=== PATIENT | male | born 1950 | race Caucasian/White ===

== ENCOUNTER → 2018-08-02 10:50 | Outpatient (CLI) | payer OTHER, SELFPAY ==
--- NOTE | 2018-08-02 10:53 | CDU_ITS ---
Reason For Study: TIA Rt. Velocities/BP Lt. Velocities/BP Prox CCA 76.8/11.7 cm/sec. Prox CCA 85.2/35.4 cm/sec. Mid CCA 61.4/9.4 cm/sec. Mid CCA 79.7/23.2 cm/sec. Dist CCA 59.2/9.96 cm/sec. Dist CCA 87.5/28.9 cm/sec. Prox ECA 82.4/11.1 cm/sec. Prox ICA 192/53.1 cm/sec. Rt. Vert. 50.3/17.1 cm/sec. Mid ICA 146/35.8 cm/sec. Dist ICA 80.1/25.9 cm/sec. Lt. ICA/CCA = 2.25. Prox ECA 53/8.53 cm/sec. Lt. Vert. 30/12 cm/sec. Right Extracranial There is no significant atherosclerotic plaque noted in the right common carotid artery. 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 There is no significant atherosclerotic plaque noted in the right external carotid artery. Antegrade flow is noted in the right vertebral artery. Left Extracranial There is no significant atherosclerotic plaque noted in the left common carotid artery. There is heterogeneous, irregular atherosclerotic plaque noted in the left internal carotid artery. The atherosclerotic plaque causes acoustic shadowing. There is homogeneous, irregular atherosclerotic plaque noted in the left external carotid artery. Antegrade flow is noted in the left vertebral artery. Procedure Carotid Duplex [id number]. Exam performed in department. Interpretation Summary Moderate (50-69%) stenosis left extracranial internal carotid. Flow within the vertebral arteries is antegrade bilaterally. 3. right ICA occluded. Ordering Physician: Adrian Herrera Referring Physician: MD Naif Bell Performed By: Sharyn DEVONTE, GONZALES, Adia and Student
== END ==
PROVIDERS: Family Provider Family Medicine; PCP Family Medicine; Visit Provider Internal Medicine Cardiovascular Disease
DX: I65.29 Occlusion and stenosis of unspecified carotid artery (principal); I10 Essential (primary) hypertension; E78.5 Hyperlipidemia, unspecified; Z86.73 Personal history of transient ischemic attack (TIA), and cerebral infarction without residual deficits
CPT/HCPCS: 93880

== ENCOUNTER → 2019-10-30 07:57 | Outpatient (CLI) | payer OTHER, SELFPAY ==
[2019-08-09 14:28] VITALS: BMI 27.7
--- NOTE | 2019-10-30 08:01 | CDU_ITS ---
Reason For Study: carotid stenosis Rt. Velocities/BP Lt. Velocities/BP Prox CCA 82.6/13.4 cm/sec. Prox CCA 103.4/27.8 cm/sec. Mid CCA 69.5/9.5 cm/sec. Mid CCA 98.2/23.9 cm/sec. Dist CCA 63.0/10.8 cm/sec. Dist CCA 89.1/29.1 cm/sec. Prox ECA 109.9/20.0 cm/sec. Prox ICA 168.6/57.2 cm/sec. Rt. Vert. 76.0/22.6 cm/sec. Mid ICA 171.8/44.5 cm/sec. Dist ICA 122.9/38.9 cm/sec. Lt. ICA/CCA = 1.7. Prox ECA 112.5/13.4 cm/sec. Lt. Vert. 36.9/8.1 cm/sec. Right Extracranial There is intimal thickening but no significant atherosclerotic plaque noted in the right common carotid artery. 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 There is intimal thickening but no significant atherosclerotic plaque noted in the right external carotid artery. Antegrade flow is noted in the right vertebral artery. Left Extracranial There is intimal thickening but no significant atherosclerotic plaque noted in the left common carotid artery. There is heterogeneous, irregular atherosclerotic plaque noted in the left internal carotid artery. The atherosclerotic plaque causes acoustic shadowing. There is heterogeneous, irregular atherosclerotic plaque noted in the left external carotid artery. Antegrade flow is noted in the left vertebral artery. Procedure Carotid Duplex [id number]. The exam was diagnostic. Exam performed in department. 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 Moderate (50-69%) stenosis left extracranial internal carotid. Flow within the vertebral arteries is antegrade bilaterally. Ordering Physician: Naif Bell Performed By: Fareed, Enrique, RVT
== END ==
LOC: CVS 07:57
PROVIDERS: Family Provider Family Medicine; PCP Family Medicine; Referring Provider Surgery Vascular Surgery; Visit Provider Surgery Vascular Surgery
DX: I65.23 Occlusion and stenosis of bilateral carotid arteries (principal); I10 Essential (primary) hypertension; E78.00 Pure hypercholesterolemia, unspecified; I25.2 Old myocardial infarction; Z86.73 Personal history of transient ischemic attack (TIA), and cerebral infarction without residual deficits
CPT/HCPCS: 93880

== ENCOUNTER → 2020-04-02 13:54 | Outpatient (CLI) | payer OTHER, SELFPAY ==
[2020-03-07 09:14] VITALS: BMI 27.4
--- NOTE | 2020-04-02 14:00 | ECHOD_ITS ---
Reason For Study: PHTN Procedure This was a 2D Doppler, Color Flow transthoracic echocardiogram. Exam performed in department. Left Ventricle Normal size and thickness. The estimated ejection fraction is 65 %. Stage 1 diastolic dysfunction. No regional wall motion abnormalities noted. Right Ventricle Normal size and thickness. Normal systolic function. Atria Normal left atrium. Normal right atrium. Normal atrial septum. Mitral Valve The mitral valve is structurally normal. No prolapse or stenosis seen. Tricuspid Valve Normal tricuspid valve. Trivial tricuspid valve insufficiency. Right ventricular systolic pressure estimated to be 31 mmHg. Aortic Valve Trisinus/trileaflet aortic valve. Mild diffuse aortic valve thickening. Mild focal aortic valve calcification. There is no aortic stenosis. Mild-Moderate (1-2+) aortic valve insufficiency. Pulmonic Valve Normal pulmonic valve. Great Vessels Normal aortic root. Normal arch. Normal inferior vena cava. Inferior vena cava collapse with sniff. Pericardium/Pleural No pericardial effusion. MMode/2D Measurements & Calculations LVIDd: 3.8 cm IVSd: 1.0 cm LVOT diam: 2.1 cm LVIDs: 2.5 cm LVPWd: 0.95 cm LVOT area: 3.4 cm2 RVDd: 3.1 cm FS: 33.8 % Ao root diam: 2.9 cm LAV(MOD-bp): 35.5 ml LA A4 area: 13.8 cm2 LAV(MOD-bp) Indexed: 19.0 ml/m2 LAV(MOD-sp2): 34.9 ml LAV(MOD-sp4): 34.9 ml LA dimension(2D): 3.8 cm RA A4 area: 9.8 cm2 Time Measurements MV dec time: 0.17 sec Doppler Measurements & Calculations MV E max robert: 65.6 cm/sec Lat Peak E' Robert: 7.4 cm/sec Med Peak E' Robert: 5.2 cm/sec MV A max robert: 86.1 cm/sec E/E' lat: 8.9 E/E' med: 12.5 MV E/A: 0.76 Ao V2 max: 177.4 cm/sec AI max robert: 413.4 cm/sec LV V1 max: 102.7 cm/sec Ao max P.6 mmHg AI max P.4 mmHg LV V1 max P.2 mmHg Ao V2 mean: 130.1 cm/sec AI dec slope: 255.3 cm/sec2 LV V1 mean P.4 mmHg Ao mean P.3 mmHg AI P1/2t: 474.3 msec LV V1 mean: 75.2 cm/sec Ao V2 VTI: 34.8 cm LV V1 VTI: 21.1 cm ANTONIO(I,D): 2.1 cm2 ANTONIO(V,D): 2.0 cm2 SV(LVOT): 72.6 ml PA V2 max: 81.9 cm/sec TR max robert: 252.6 cm/sec TR max P.5 mmHg Interpretation Summary The estimated ejection fraction is 65 %. Stage 1 diastolic dysfunction. Trivial tricuspid valve insufficiency. Mild-Moderate (1-2+) aortic valve insufficiency. Right ventricular systolic pressure estimated to be 31 mmHg. Compared to echo report dated 08/02/2008, patient's LV function has remained the same, her RVSP is increased from 24 to 31 mmHg, and her aortic insufficiency has gone from trivial to mild to moderate. Ordering Physician: Adrian Herrera Referring Physician: Naif Patel Performed By: Uma Nugent, DEVONTE, RVT
== END ==
LOC: CVS 14:00
PROVIDERS: PCP Family Medicine; Referring Provider Internal Medicine Cardiovascular Disease; Visit Provider Internal Medicine Cardiovascular Disease
DX: I25.10 Atherosclerotic heart disease of native coronary artery without angina pectoris (principal); I10 Essential (primary) hypertension; Z86.711 Personal history of pulmonary embolism; Z95.5 Presence of coronary angioplasty implant and graft
CPT/HCPCS: 93306

== ENCOUNTER → 2020-05-01 | Outpatient (CLI) | payer OTHER, SELFPAY ==
[2020-03-07 09:14] VITALS: BMI 27.4
[2020-05-01 17:03] LABS: Amphetamine Urine VISTA NEGATIVE (<1000 ng/mL); Barbiturate Urine VISTA NEGATIVE (< 200 ng/mL); Benzodiazepine Urine VISTA NEGATIVE (< 200 ng/mL); Cocaine Urine VISTA NEGATIVE (< 300 ng/mL); Ecstacy Urine VISTA NEGATIVE (< 500 ng/mL); Methadone Urine VISTA NEGATIVE (< 300 ng/mL); PCP Urine VISTA NEGATIVE (< 25 ng/mL); THC Urine VISTA NEGATIVE (< 50 ng/mL); Vista UDS pH Range 6
== END | disposition home or self-care (01) ==
PROVIDERS: PCP Family Medicine; Referring Provider Anesthesiology Pain Medicine; Visit Provider Anesthesiology Pain Medicine
DX: F11.20 Opioid dependence, uncomplicated (principal)
CPT/HCPCS: 80307

== ENCOUNTER → 2021-02-05 10:26 | Outpatient (CLI) | payer OTHER, SELFPAY ==
[2020-09-17 10:55] VITALS: BMI 27.9
[2021-02-05 11:21] LABS: Amphetamine Urine VISTA NEGATIVE (<1000 ng/mL); Barbiturate Urine VISTA NEGATIVE (< 200 ng/mL); Benzodiazepine Urine VISTA NEGATIVE (< 200 ng/mL); Cocaine Urine VISTA NEGATIVE (< 300 ng/mL); Ecstacy Urine VISTA NEGATIVE (< 500 ng/mL); Methadone Urine VISTA NEGATIVE (< 300 ng/mL); PCP Urine VISTA NEGATIVE (< 25 ng/mL); THC Urine VISTA NEGATIVE (< 50 ng/mL); Vista UDS pH Range 7
== END ==
PROVIDERS: PCP Family Medicine; Referring Provider Anesthesiology Pain Medicine; Visit Provider Anesthesiology Pain Medicine
DX: F11.20 Opioid dependence, uncomplicated (principal)
CPT/HCPCS: 80307

== ENCOUNTER → 2021-09-28 08:04 | Outpatient (CLI) | payer OTHER, SELFPAY ==
--- NOTE | 2021-09-28 08:06 | CDU_ITS ---
Reason For Study: Carotid artery disease Rt. Velocities/BP Lt. Velocities/BP Prox CCA 100/11 cm/sec. Prox CCA 131/23 cm/sec. Mid CCA 86/7 cm/sec. Mid CCA 136/27 cm/sec. Dist CCA 74/7 cm/sec. Dist CCA 122/25 cm/sec. Known Rt ICA Occlusion. Prox ICA 183/46 cm/sec. Prox ECA 103/9 cm/sec. Mid ICA 167/28 cm/sec. Rt. Vert. 80/16 cm/sec. Dist ICA 69/25 cm/sec. Lt. ICA/CCA = 1.35. Prox ECA 105/18 cm/sec. Lt. Vert. 29/8 cm/sec. Right Extracranial There is intimal thickening but no significant atherosclerotic plaque noted in the right common carotid artery. There is heterogeneous, irregular atherosclerotic plaque noted in the right internal carotid artery. 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 There is intimal thickening but no significant atherosclerotic plaque noted in the right external carotid artery. Antegrade flow is noted in the right vertebral artery. Left Extracranial There is heterogeneous, irregular atherosclerotic plaque noted in the left common carotid artery. There is heterogeneous, irregular atherosclerotic plaque noted in the left internal carotid artery. The atherosclerotic plaque causes acoustic shadowing. There is intimal thickening but no significant atherosclerotic plaque noted in the left external carotid artery. Antegrade flow is noted in the left vertebral artery. Procedure Carotid Duplex [id number]. This is a Carotid Duplex examination using B-mode, color flow and specral Doppler. Exam performed in department. 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 Moderate (50- 69%) stenosis left extracranial internal carotid. Flow within the vertebral arteries is antegrade bilaterally. Ordering Physician: Chencho Curiel Referring Physician: Naif Patel Performed By: Barbie Curiel, RDCS, RVT
== END ==
LOC: CVS 08:06
PROVIDERS: PCP Family Medicine; Referring Provider Nurse Practitioner Family; Visit Provider Nurse Practitioner Family
DX: I65.22 Occlusion and stenosis of left carotid artery (principal)
CPT/HCPCS: 93880

== ENCOUNTER → 2022-10-01 | Outpatient (CLI) | payer OTHER, SELFPAY ==
--- NOTE | 2022-10-01 11:26 | STRESSREP ---
Stress Test Report Exercise myocardial perfusion stress test. 72-year-old man with a history of chest pain. Resting EKG demonstrates normal sinus rhythm with a rate of 59 bpm normal intervals are noted resting blood pressure is 120/68 mmHg. The patient exercised according to regular Duncan protocol for total duration of 8 minutes and 31 seconds. The maximum heart rate attained was 137 bpm which was 91% maximum predicted heart rate the maximum workload was 10.1 metabolic equivalents. At rest there were no ST or T wave changes noted to suggest ischemia and at peak exercise upsloping ST changes were noted we did not meet the criteria for ischemia. No clinical angina was noted the test was terminated due to the target heart rate being achieved. Myocardial perfusion protocol. 9.1 mCi of technetium 99m sestamibi was injected at rest. The patient exercised according to regular Duncan protocol for total duration of 8-1/2 minutes and at peak exercise 31.4 mCi of technetium 99m sestamibi was injected stress images were obtained stress and rest images were reconstructed in comparing the short axis vertical long and horizontal long axis. Gated images were also obtained to Perfusion SPECT analysis: Review of the stress images demonstrate normal uptake of tracer noted in all areas of the myocardium. The resting images similar demonstrate normal uptake of tracer noted in all areas of the myocardium. No areas of reversibility are noted to suggest ischemia and no previous infarct is noted. Gated SPECT analysis: The gated ejection fraction is noted to be 60%. Conclusion: Normal exercise myocardial perfusion stress test at a high workload. Preserved ejection fraction.
== END | disposition home or self-care (01) ==
LOC: CVS 06:47
PROVIDERS: PCP Family Medicine; Referring Provider Internal Medicine Cardiovascular Disease; Visit Provider Internal Medicine Cardiovascular Disease
DX: I25.10 Atherosclerotic heart disease of native coronary artery without angina pectoris (principal); Z95.5 Presence of coronary angioplasty implant and graft
CPT/HCPCS: 78452; 93017; A9500; A4216

== ENCOUNTER → 2023-09-30 | Outpatient (CLI) | payer OTHER, SELFPAY ==
--- NOTE | 2023-09-30 09:13 | CDU_ITS ---
Reason For Study: CAROTID ARTERY DISEASE PROGRESSION Rt. Velocities/BP Lt. Velocities/BP Prox CCA 72.4/0.0 cm/sec. Prox CCA 112.5/15.5 cm/sec. Mid CCA 84.6/6.2 cm/sec. Mid CCA 65.8/16.7 cm/sec. Dist CCA 56.3/6.2 cm/sec. Dist CCA 75.6/22.8 cm/sec. KNOWN MARKO OCCLUSION. Prox ICA 250.4/48.2 cm/sec. Prox ECA 99.0/11.8 cm/sec. Mid ICA 151.2/28.3 cm/sec. Rt. Vert. 85.5/15.5 cm/sec. Dist ICA 94.1/25.3 cm/sec. Lt. ICA/CCA = 250.4/65.8=3.8. Prox ECA 72.0/6.9 cm/sec. Lt. Vert. 22.3/5.8 cm/sec. Right Extracranial There is homogeneous, smooth atherosclerotic plaque noted in the right common carotid artery. There is heterogeneous, irregular atherosclerotic plaque noted in the right internal carotid artery. KNOW MARKO OCCLUSION. There is intimal thickening but no significant atherosclerotic plaque noted in the right external carotid artery. Antegrade flow is noted in the right vertebral artery. Left Extracranial There is homogeneous, smooth atherosclerotic plaque noted in the left common carotid artery. There is heterogeneous, irregular atherosclerotic plaque noted in the left internal carotid artery. There is intimal thickening but no significant atherosclerotic plaque noted in the left external carotid artery. Antegrade flow is noted in the left vertebral artery. Procedure Carotid Duplex [id number]. This is a Carotid Duplex examination using B-mode, color flow and specral Doppler. Exam performed in department. 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 Moderate (50- 69%) stenosis left extracranial internal carotid. Flow within the vertebral arteries is antegrade bilaterally. Ordering Physician: Chencho Curiel Referring Physician: Naif Patel Performed By: Uma Nugent, DEVONTE, RVT
== END | disposition home or self-care (01) ==
LOC: CVS 09:11
PROVIDERS: PCP Family Medicine; Referring Provider Nurse Practitioner Family; Visit Provider Nurse Practitioner Family
DX: I65.23 Occlusion and stenosis of bilateral carotid arteries (principal); Z95.5 Presence of coronary angioplasty implant and graft
CPT/HCPCS: 93880

== ENCOUNTER → 2024-12-21 | Outpatient (CLI) | payer BC, SELFPAY ==
--- NOTE | 2024-12-21 09:51 | ECHOD_ITS ---
Reason For Study: MUMRMUR Procedure This was a 2D Doppler, Color Flow transthoracic echocardiogram. Exam performed in department. Left Ventricle Normal LV size. Mild concentric left ventricular hypertrophy. Left ventricular systolic function is normal. The left ventricular ejection fraction is 50 %. Stage 1 diastolic dysfunction. No regional wall motion abnormalities noted. Right Ventricle Normal RV size. Normal systolic function. Atria Normal left atrium. Normal right atrium. Mitral Valve There is mild mitral annular calcification. Tricuspid Valve Normal tricuspid valve. Aortic Valve Trisinus/trileaflet aortic valve. Mild focal aortic valve calcification. Peak aortic valve gradient 17 mmHg. Mean aortic valve gradient 9 mmHg. Mild (1+) aortic valve insufficiency. Great Vessels Normal aortic root. The pulmonary artery is normal size. Inferior vena cava collapse with respiration. Pericardium/Pleural No pericardial effusion. MMode/2D Measurements & Calculations LVIDd: 3.4 cm IVSd: 1.2 cm LVOT diam: 2.0 cm LVIDs: 2.1 cm LVPWd: 1.7 cm LVOT area: 3.3 cm2 RVDd: 3.1 cm FS: 37.7 % _ Ao root diam: 2.8 cm LAV(MOD-bp): 53.0 ml LVAd ap4: 22.6 cm2 LAV(MOD-bp) Indexed: 28.9 ml/m2 LVLd ap4: 8.0 cm LAV(MOD-sp2): 47.4 ml EDV(MOD- sp4): 55.8 ml LAV(MOD-sp4): 56.3 ml EDV(sp4- el): 54.2 ml LVAs ap4: 14.4 cm2 LVLs ap4: 6.5 cm ESV(MOD- sp4): 27.2 ml ESV(sp4- el): 26.8 ml EF(MOD- sp4): 51.2 % EF(sp4- el): 50.5 % _ SV(MOD-sp4): 28.6 ml SV(sp4-el): 27.4 ml LA A4 area: 19.8 cm2 SI(MOD-sp4): 15.6 ml/m2 _ LA dimension(2D): 3.8 cm RA A4 area: 11.6 cm2 Time Measurements MV dec time: 0.31 sec Doppler Measurements & Calculations MV E max robert: 57.6 cm/sec Lat Peak E' Robert: 6.7 cm/sec Med Peak E' Robert: 4.8 cm/sec MV A max robert: 70.6 cm/sec E/E' lat: 8.6 E/E' med: 12.0 MV E/A: 0.82 _ MV V2 max: 84.2 cm/sec Ao V2 max: 209.1 cm/sec MV max P.8 mmHg MV dec slope: 205.0 cm/sec2 Ao max P.5 mmHg MV V2 mean: 36.0 cm/sec Ao V2 mean: 144.3 cm/sec MV mean P.65 mmHg Ao mean P.4 mmHg MV V2 VTI: 24.8 cm Ao V2 VTI: 44.8 cm AV (velocity ratio): 0.57 MVA(VTI): 3.4 cm2 ANTONIO(I,D): 1.9 cm2 ANTONIO(V,D): 1.7 cm2 _ AI max robert: 408.5 cm/sec LV V1 max: 105.7 cm/sec SV(LVOT): 83.7 ml AI max P.7 mmHg LV V1 max P.5 mmHg AI dec slope: 155.7 cm/sec2 LV V1 mean P.6 mmHg AI P1/2t: 768.4 msec LV V1 mean: 74.0 cm/sec LV V1 VTI: 25.6 cm _ PA V2 max: 68.1 cm/sec PA V2 mean: 46.5 cm/sec ECHO/Echo Complete Interpretation Summary Normal LV size. Left ventricular systolic function is normal. Mild (1+) aortic valve insufficiency. Mild focal aortic valve calcification. The left ventricular ejection fraction is 50 %. Stage 1 diastolic dysfunction. Mild concentric left ventricular hypertrophy. Ordering Physician: David Davis Referring Physician: David Davis Performed By: Eri Santana RCS
== END | disposition home or self-care (01) ==
LOC: CVS 09:49
PROVIDERS: PCP Family Medicine; Referring Provider Internal Medicine Cardiovascular Disease; Visit Provider Internal Medicine Cardiovascular Disease
DX: R01.1 Cardiac murmur, unspecified (principal); I35.1 Nonrheumatic aortic (valve) insufficiency
CPT/HCPCS: 93306